=== PATIENT | male | born 1960 | race Caucasian/White ===

== ENCOUNTER 2021-08-21 14:30 | Outpatient (RCR) | payer MEDICARE, SELFPAY | END 2021-11-15 08:53 | disposition home or self-care (01) | LOC: HO.WCC 14:30 | PROVIDERS: PCP Internal Medicine; Visit Provider Surgery | DX: M65.051 Abscess of tendon sheath, right thigh (principal); M65.061 Abscess of tendon sheath, right lower leg; E11.65 Type 2 diabetes mellitus with hyperglycemia; E66.01 Morbid (severe) obesity due to excess calories | CPT/HCPCS: 11042; 17250; 97597; 99212; 99213; 99214 ==